=== PATIENT | female | born 1990 | race Caucasian/White ===

== ENCOUNTER → 2018-05-09 | Outpatient (REF) | payer OTHER ==
[~2018-05-09] MED LIST: IBUP80TA PO; MAPA500T2 PO; PREN200C PO
[2018-05-09 17:15] LABS: BASO % 0.4 % (0.0-1.0); HEMATOCRIT 40.8 % (36.0-47.0); HEMOGLOBIN 13.7 g/dl (12.0-15.5); LYMPH # 1.7 10^3/uL (1.5-6.5); LYMPH % 15.8 % (24.0-44.0); MEAN CORPUSCULAR HEMOGLOBIN 31.2 pg (27.0-33.0); MEAN CORPUSCULAR HGB CONC 33.6 g/dl (32.0-36.5); MEAN CORPUSCULAR VOLUME 92.9 fl (80.0-96.0); MONO # 0.5 10^3/uL (0.0-0.8); MONO % 4.6 % (0.0-5.0); NEUTROPHILS # 8.3 10^3/uL (1.8-7.7); PLATELET COUNT, AUTOMATED 302 10^3/uL (150-450); RED BLOOD COUNT 4.39 10^6/uL (4.00-5.40); WHITE BLOOD COUNT 10.5 10^3/uL (4.0-10.0)
[2018-05-09 17:16] LABS: ALBUMIN 4.6 GM/DL (3.2-5.2); ALT/SGPT 19 U/L (12-78); BILIRUBIN,TOTAL 0.4 MG/DL (0.2-1.0); BLOOD UREA NITROGEN 10 MG/DL (7-18); CALCIUM LEVEL 9.4 MG/DL (8.5-10.1); CARBON DIOXIDE LEVEL 26 MEQ/L (21-32); CHLORIDE LEVEL 104 MEQ/L (98-107); CREATININE FOR GFR 0.81 MG/DL (0.55-1.30); GLOMERULAR FILTRATION RATE > 60.0 (>60); GLUCOSE, FASTING 102 MG/DL (70-100); SODIUM LEVEL 138 MEQ/L (136-145)
[2018-05-09 17:27] LABS: HEMOGLOBIN A1c 5.1 %
== END ==
LOC: M SFHCPLAZ 15:35
PROVIDERS: ATTEND Family Medicine
DX: Z51.81 Encounter for therapeutic drug level monitoring (principal); Z79.899 Other long term (current) drug therapy

== ENCOUNTER → 2018-06-20 | Outpatient (REF) | payer OTHER ==
[2018-06-24 14:21] LABS: HPV HYBRID CAPTURE II Negative (Negative)
== END ==
LOC: M SFHCPLAZ 13:09
PROVIDERS: ATTEND Family Medicine
DX: Z12.4 Encounter for screening for malignant neoplasm of cervix (principal); R87.610 Atypical squamous cells of undetermined significance on cytologic smear of cervix (ASC-US)

== ENCOUNTER → 2018-08-16 | Outpatient (REF) | payer OTHER | LOC: M LAB REF 17:42 | PROVIDERS: ATTEND Obstetrics & Gynecology | DX: R87.610 Atypical squamous cells of undetermined significance on cytologic smear of cervix (ASC-US) (principal) ==

== ENCOUNTER 2018-10-07 12:09 | Day surgery (SDC) | payer OTHER ==
[~2018-10-07] VITALS: Ht 160 cm; Wt 57.7 kg
[~2018-10-07 12:09] MED LIST changes: +LATU80TA; +LIDOCAINE 1% MDV 20ML VIAL SQ PRN; +LR 1,000 ML IV ONE
[2018-10-07 12:44] LABS: HEMATOCRIT 39.6 % (36.0-47.0); MEAN CORPUSCULAR HGB CONC 32.8 g/dl (32.0-36.5); MEAN CORPUSCULAR VOLUME 94.3 fl (80.0-96.0); PLATELET COUNT, AUTOMATED 298 10^3/uL (150-450); WHITE BLOOD COUNT 7.2 10^3/uL (4.0-10.0)
[2018-10-07] MEDS ORDERED: BUPIVACAINE HCL 0.25% 30 ML VIAL As Ordered ONE (13:37)
[2018-10-07] MEDS ORDERED: KETOROLAC 60 MG/2 ML VIAL (J1885) As Ordered ONE (13:56)
[2018-10-07] MEDS ORDERED: MIDAZOLAM INJ 2 MG/2 ML VIAL (J2250) As Ordered ONE (13:56)
[2018-10-07] MEDS ORDERED: PROPOFOL 200 MG/20 ML VIAL As Ordered ONE (13:56)
[2018-10-07] MEDS ORDERED: ONDANSETRON 4MG/2ML VIAL (J2405) As Ordered ONE (13:56)
[2018-10-07] MEDS ORDERED: KETAMINE HCL 200 MG/20 ML VIAL As Ordered ONE (13:56)
[2018-10-07] MEDS ORDERED: fentaNYL 250 MCG/5 ML INJECTION (J3010) As Ordered ONE (13:56)
[2018-10-07] MEDS ORDERED: LIDOCAINE 2% INJ 100 MG/5 ML SDV (FOR ANES.) As Ordered ONE (13:56)
[2018-10-07] MEDS ORDERED: GLYCOPYRROLATE INJ 0.2 MG/ML 2 ML VIAL As Ordered ONE (13:58)
[2018-10-07] MEDS ORDERED: ePHEDrine SULFATE 25 MG/5 ML(5MG/ML) SYRINGE As Ordered ONE (14:13)
[2018-10-07 14:30] VITALS: BP 108/59
--- NOTE | 2018-10-09 10:30 | RO ---
DATE OF OPERATION: 10/07/2018 PREOPERATIVE DIAGNOSIS: Vaginal wall inclusion cyst. POSTOPERATIVE DIAGNOSIS: Vaginal wall inclusion cyst. PROCEDURE PERFORMED: Excision of vaginal wall inclusion cyst. SURGEON: Keyona Morales MD STUDIO PRODUCER: Cindy Russell, PGY-3 ANESTHESIA: IV sedation with local Marcaine. ESTIMATED BLOOD LOSS: 10 mL. INTRAVENOUS FLUIDS: 600 mL of Lactated Ringer's solution. URINE OUTPUT: Was not obtained. SPECIMEN: Vaginal cyst wall and vaginal mucosa. OPERATIVE FINDINGS: Approximately 3 cm anterior vaginal wall inclusion cyst. DESCRIPTION OF OPERATION: Informed consent was obtained and written consent reviewed, the patient brought to the operating room where she was placed on IV sedation. She is then placed in lithotomy position, and was prepped and draped in a normal sterile fashion. A time out operating room was then performed identifying the patient, procedure be performed as well as drug allergies. A speculum was then placed revealing the inclusion cyst. This area was placed on tension. Incision was made along the wall. The vaginal mucosa was then dissected off the cyst wall. The cyst wall was then removed. The vaginal mucosa was then trimmed and was sewed using #3-0 Vicryl. Hemostasis noted. The patient was then taken out of lithotomy position and was taken to recovery in stable condition. Counts were correct.
== END 2018-10-07 15:15 | disposition home or self-care (01) ==
LOC: M SDC 12:09
PROVIDERS: ATTEND Obstetrics & Gynecology
DX: N90.7 Vulvar cyst (principal); F31.9 Bipolar disorder, unspecified; F17.210 Nicotine dependence, cigarettes, uncomplicated; Z79.899 Other long term (current) drug therapy
CPT/HCPCS: 36415; 57135; 85027; 86850; 86900; 86901; 88302; 88305; J1885; J2250; J2405; J3010

== ENCOUNTER → 2019-01-29 | Outpatient (CLI) | payer OTHER ==
[~2019-01-29] MED LIST changes: +ALBU8.5H INH; +DOXY100C37 PO; -LIDOCAINE 1% MDV 20ML VIAL SQ PRN; -LR 1,000 ML IV ONE; +PRED20TA PO; +VENL37TA PO
--- NOTE | 2019-01-29 13:56 | REP ---
REASON: Cough. COMPARISON: Frontal view obtained as part of an abdominal series 10/13/2013. There is a new patchy opacity in the left upper lobe. The pleural angles are sharp and the heart is not enlarged. The osseous structures are within normal limits. IMPRESSION: Left upper lobe pneumonia. Electronically Signed by Kristian Antoine DO 01/29/2019 02:29 P
== END ==
LOC: M WUC 12:18
PROVIDERS: ATTEND Physician Assistant
DX: R05 Cough (principal)

== ENCOUNTER 2019-01-31 10:12 | Emergency (ER) | payer OTHER ==
[~2019-01-31] VITALS: Ht 157.5 cm; Wt 57.9 kg
[~2019-01-31 10:12] MED LIST changes: -ALBU8.5H INH; -DOXY100C37 PO; -PRED20TA PO; -VENL37TA PO
[2019-01-31] MEDS ORDERED: DOXY100C37 PO (10:21)
[2019-01-31] MEDS ORDERED: VENL37TA PO (10:21)
[2019-01-31] MEDS ORDERED: ALBU8.5H INH (10:21)
[2019-01-31] MEDS ORDERED: methylPREDNISolone INJ 125 MG/2 ML VIAL (J2930) IV ONE (11:15)
[2019-01-31] MEDS ORDERED: ONDANSETRON 4MG/2ML VIAL (J2405) IV ONE (11:15)
[2019-01-31] MEDS ORDERED: NS 1,000 ML IV ONE (11:15)
[2019-01-31] MEDS: IPRATROPIUM 0.5MG/ALBUTEROL 2.5MG INH SOL UD 3ML (DUONEB)(J7620) NEB PRN ×2 (11:32→14:17)
[2019-01-31 11:47] LABS: HEMATOCRIT 44.8 % (36.0-47.0); HEMOGLOBIN 14.5 g/dl (12.0-15.5); MEAN CORPUSCULAR HEMOGLOBIN 30.6 pg (27.0-33.0); MEAN CORPUSCULAR HGB CONC 32.4 g/dl (32.0-36.5); MEAN CORPUSCULAR VOLUME 94.5 fl (80.0-96.0); PLATELET COUNT, AUTOMATED 520 10^3/uL (150-450); RED BLOOD COUNT 4.74 10^6/uL (4.00-5.40); WHITE BLOOD COUNT 5.9 10^3/uL (4.0-10.0)
[2019-01-31 12:49] LABS: INFLUENZA A AMPLIFICATION NEGATIVE (NEGATIVE); INFLUENZA B AMPLIFICATION NEGATIVE (NEGATIVE)
[2019-01-31] MEDS ORDERED: DOXYCYCLINE HYCLATE 100 MG in D5W MINI-BAG PLUS 100 ML IV ONE (13:15)
[2019-01-31] MEDS ORDERED: PRED20TA PO (14:00)
[2019-01-31 14:40] VITALS: BP 117/58
--- NOTE | 2019-01-31 19:01 | REP ---
Chest x-ray: Two views. History: Abnormal breath sounds. Comparison chest x-ray: January 29, 2019. Findings: There is still an infiltrate in the left upper lobe consistent with pneumonia. It is essentially unchanged. Remaining lung jackson are clear. Pleural angles are sharp. No bony abnormalities seen. Heart size is normal. Impression: Left upper lobe pneumonia again seen essentially unchanged from the study done 2 days prior. Electronically Signed by Hal Higuera MD 01/31/2019 06:52 P
== END 2019-01-31 14:42 | disposition home or self-care (01) ==
LOC: M ED 10:12
DX: J18.1 Lobar pneumonia, unspecified organism (principal); F31.89 Other bipolar disorder; F41.9 Anxiety disorder, unspecified; Z87.01 Personal history of pneumonia (recurrent); F17.200 Nicotine dependence, unspecified, uncomplicated; Z79.899 Other long term (current) drug therapy
CPT/HCPCS: 36415; 71046; 80047; 83605; 84702; 85027; 87040; 87502; 94640; 96361; 96365; 96375; 99284; J2405; J2930

== ENCOUNTER → 2020-01-24 | Outpatient (CLI) | payer OTHER ==
[~2020-01-24] MED LIST changes: +ALBU8.5H INH; +DOXY100C37 PO; +PRED20TA PO; +VENL37TA PO
[2020-01-24 13:58] LABS: BASO % 0.2 % (0.0-1.0); EOS # 0.1 10^3/uL (0.0-0.5); EOS % 0.5 % (0.0-3.0); HEMATOCRIT 41.1 % (36.0-47.0); HEMOGLOBIN 13.6 g/dl (12.0-15.5); LYMPH # 1.4 10^3/uL (1.5-5.0); LYMPH % 14.6 % (24.0-44.0); MEAN CORPUSCULAR HEMOGLOBIN 30.6 pg (27.0-33.0); MEAN CORPUSCULAR HGB CONC 33.1 g/dl (32.0-36.5); MEAN CORPUSCULAR VOLUME 92.6 fl (80.0-96.0); MONO # 0.7 10^3/uL (0.0-0.8); MONO % 7.4 % (0.0-5.0); NEUTROPHILS # 7.3 10^3/uL (1.5-8.5); NEUTROPHILS % 76.9 % (36.0-66.0); PLATELET COUNT, AUTOMATED 322 10^3/uL (150-450); RED BLOOD COUNT 4.44 10^6/uL (4.00-5.40); WHITE BLOOD COUNT 9.5 10^3/uL (4.0-10.0)
[2020-01-24 14:20] LABS: ERYTHROCYTE SEDIMENTATION RATE 36 mm/hr (0-20)
[2020-01-24 14:34] LABS: ALBUMIN 3.9 GM/DL (3.2-5.2); ALT/SGPT 29 U/L (12-78); BILIRUBIN,TOTAL 0.7 MG/DL (0.2-1.0); BLOOD UREA NITROGEN 8 MG/DL (7-18); CALCIUM LEVEL 9.3 MG/DL (8.5-10.1); CARBON DIOXIDE LEVEL 22 MEQ/L (21-32); CHLORIDE LEVEL 103 MEQ/L (98-107); CREATININE FOR GFR 0.67 MG/DL (0.55-1.30); GLOMERULAR FILTRATION RATE > 60.0 (>60); GLUCOSE, FASTING 81 MG/DL (70-100); MAGNESIUM LEVEL 2.2 MG/DL (1.8-2.4); NT-PRO BNP 36 PG/ML (<125); POTASSIUM SERUM 3.5 MEQ/L (3.5-5.1); SODIUM LEVEL 136 MEQ/L (136-145); TOTAL PROTEIN 7.6 GM/DL (6.4-8.2)
== END ==
LOC: M WUC 11:15
PROVIDERS: ATTEND Nurse Practitioner Family
DX: R22.43 Localized swelling, mass and lump, lower limb, bilateral (principal)

== ENCOUNTER 2020-02-20 11:14 | Emergency (ER) | payer OTHER ==
[~2020-02-20] VITALS: Ht 157.5 cm; Wt 68.4 kg
[2020-02-20 12:17] LABS: BASO % 0.3 % (0.0-1.0); EOS # 0.1 10^3/uL (0.0-0.5); EOS % 1.9 % (0.0-3.0); HEMATOCRIT 44.6 % (36.0-47.0); HEMOGLOBIN 14.2 g/dl (12.0-15.5); LYMPH # 1.3 10^3/uL (1.5-5.0); LYMPH % 17.4 % (24.0-44.0); MEAN CORPUSCULAR HEMOGLOBIN 29.5 pg (27.0-33.0); MEAN CORPUSCULAR HGB CONC 31.8 g/dl (32.0-36.5); MEAN CORPUSCULAR VOLUME 92.5 fl (80.0-96.0); MONO # 0.6 10^3/uL (0.0-0.8); MONO % 7.4 % (0.0-5.0); NEUTROPHILS # 5.5 10^3/uL (1.5-8.5); NEUTROPHILS % 72.7 % (36.0-66.0); PLATELET COUNT, AUTOMATED 339 10^3/uL (150-450); RED BLOOD COUNT 4.82 10^6/uL (4.00-5.40); WHITE BLOOD COUNT 7.6 10^3/uL (4.0-10.0)
[2020-02-20 12:29] LABS: INR 0.88; PROTHROMBIN TIME 12.1 SECONDS (12.5-14.3)
[2020-02-20 12:38] LABS: ERYTHROCYTE SEDIMENTATION RATE 11 mm/hr (0-20)
[2020-02-20 12:43] LABS: ALBUMIN 4.6 GM/DL (3.2-5.2); ALT/SGPT 22 U/L (12-78); BILIRUBIN,DIRECT 0.2 MG/DL (0.0-0.2); BLOOD UREA NITROGEN 15 MG/DL (7-18); C REACTIVE PROTEIN QUANTITATIV 1.53 MG/DL (0.00-0.30); CALCIUM LEVEL 10.3 MG/DL (8.5-10.1); CARBON DIOXIDE LEVEL 28 MEQ/L (21-32); CHLORIDE LEVEL 103 MEQ/L (98-107); CREATININE FOR GFR 0.74 MG/DL (0.55-1.30); GLOMERULAR FILTRATION RATE > 60.0 (>60); GLUCOSE, FASTING 84 MG/DL (70-100); POTASSIUM SERUM 4.1 MEQ/L (3.5-5.1); SODIUM LEVEL 137 MEQ/L (136-145); TOTAL PROTEIN 8.3 GM/DL (6.4-8.2)
--- NOTE | 2020-02-20 13:11 | REP ---
INDICATION: redness, swelling R/O DVT. COMPARISON: None TECHNIQUE: Multiple ultrasonographic images of the deep venous structures of the bilateral thighs were obtained from the level of the common femoral vein to the popliteal vein in the longitudinal and transverse scan planes along with Doppler interrogation and color flow Doppler imaging. FINDINGS: There is no abnormal echogenic material seen within any of the visualized deep venous structures that would suggest acute thrombosis. Coaptation is unremarkable throughout. Doppler interrogation shows an expected response to respiratory variability and augmentation. The color flow Doppler images show what appears to be a normal vascular pattern throughout. IMPRESSION: There is no ultrasonographic evidence of deep venous thrombosis involving any of the visualized deep venous structures of the bilateral thigh as described above. Accredited by the [employer] in Vascular Peripheral Ultrasound. <Electronically signed by Huseyin Locke > 02/20/20 [id number]
[2020-02-20 13:35] VITALS: BP 124/57
== END 2020-02-20 14:07 | disposition home or self-care (01) ==
LOC: M ED 11:14
DX: M79.89 Other specified soft tissue disorders (principal); F17.210 Nicotine dependence, cigarettes, uncomplicated

== ENCOUNTER 2020-06-20 12:30 | Emergency (ER) | payer OTHER ==
[~2020-06-20] VITALS: Ht 157.5 cm; Wt 67.5 kg
[2020-06-20 12:30] VITALS: BP 145/79
[~2020-06-20 12:30] MED LIST changes: -MUPI2OI TOP; -SILV1CRE60 TOP; -VALA1TAB5 PO
[2020-06-20] MEDS ORDERED: SILV1CRE60 TOP (12:53)
[2020-06-20] MEDS ORDERED: MUPI2OI TOP (14:14)
[2020-06-20] MEDS ORDERED: VALA1TAB5 PO (14:14)
== END 2020-06-20 14:23 | disposition home or self-care (01) ==
LOC: M ED 12:30
DX: R21 Rash and other nonspecific skin eruption (principal)

== ENCOUNTER → 2020-06-20 | Outpatient (CLI) | payer OTHER ==
[~2020-06-20] MED LIST changes: +MUPI2OI TOP; +SILV1CRE60 TOP; +VALA1TAB5 PO
--- NOTE | 2020-06-20 12:38 | REP ---
INDICATION: ROSALIE LEG SWELLING ? PVD COMPARISON: None. TECHNIQUE: Real time cash scale and Duplex Doppler evaluation of the bilateral lower extremity arterial vasculature using linear high frequency transducer. FINDINGS: Cash scale and duplex doppler images demonstrate very minimal scattered plaquing bilaterally with diffuse triphasic waveforms, monophasic waveforms are seen in the left profunda and distal posterior tibial artery. There is no duplex Doppler sonographic evaluation of hemodynamically significant stenosis bilaterally. No arterial occlusion is seen. GERALD right 1.13 and left 0.92. Peak systolic velocities (cm/sec) Common femoral artery: Right 118; Left 128 Profunda femoris: Right 108; Left 110 SFA (proximal): Right 115; Left 129 SFA (mid): Right 143; Left 126 SFA (distal): Right 130; Left 101 Popliteal artery: Right 106; Left 78 TAHIR (prox.): Right 67; Left 58 Tibioperoneal trunk: Right 75; Left 92 HIGH WIRE ARTIST (prox.): Right 72; Left 81 HIGH WIRE ARTIST (distal): Right 53; Left 69 TAHIR (distal): Right 63; Left 53 IMPRESSION: Minimal atheromatous changes no focal occlusion or stenosis. <Electronically signed by Juaquin Cash > 06/20/20 [id number]
== END ==
LOC: M RAD 11:14
PROVIDERS: ATTEND Nurse Practitioner Family
DX: M79.89 Other specified soft tissue disorders (principal)

== ENCOUNTER 2020-08-27 15:00 | Emergency (ER) | payer OTHER ==
[~2020-08-27] VITALS: Ht 157.5 cm; Wt 65.9 kg
[~2020-08-27 15:00] MED LIST changes: +MUPI2OI TOP; +SILV1CRE60 TOP; +VALA1TAB5 PO
[2020-08-27] MEDS ORDERED: ACE65ERTAB PO (15:10)
[2020-08-27] MEDS ORDERED: ACETAMINOPHEN 500 MG TAB PO ONE (18:35)
--- NOTE | 2020-08-27 19:00 | REP ---
INDICATION: cough. COMPARISON: 01/31/2019 the latest prior TECHNIQUE: Portable FINDINGS: The technique utilized in obtaining the radiograph has magnified the cardiac silhouette and accentuated the interstitial markings. The superior mediastinal structures are midline. The cardiac silhouette is unremarkable in size, shape, and position. The diaphragmatic surfaces of the lungs are regular, and the costophrenic angles are clear. The pulmonary jackson are clear. The imaged osseous structures are intact. IMPRESSION: There is no acute cardiopulmonary disease. <Electronically signed by Kristian Antoine > 08/27/20 [id number]
[2020-08-27] MEDS ORDERED: PROAAER10 INH (19:19)
[2020-08-27] MEDS ORDERED: TESS100C PO (19:19)
[2020-08-27] MEDS ORDERED: BENZONATATE 100 MG CAP PO ONE (19:20)
[2020-08-27 19:37] VITALS: O2SAT 99
[2020-08-27 19:46] VITALS: BP 128/68
== END 2020-08-27 19:55 | disposition home or self-care (01) ==
LOC: M ED 15:00
DX: Z20.822 Contact with and (suspected) exposure to COVID-19 (principal); Z11.52 Encounter for screening for COVID-19; J06.9 Acute upper respiratory infection, unspecified; J45.901 Unspecified asthma with (acute) exacerbation; R05 Cough; R68.83 Chills (without fever); M79.10 Myalgia, unspecified site; R09.82 Postnasal drip; F41.9 Anxiety disorder, unspecified; F32.9 Major depressive disorder, single episode, unspecified; F17.200 Nicotine dependence, unspecified, uncomplicated
CPT/HCPCS: 71045; 87804; 99284; U0003

== ENCOUNTER → 2020-12-16 | Outpatient (CLI) | payer MEDICAID ==
[~2020-12-16] MED LIST changes: +ACE65ERTAB PO; -DOXY100C37 PO; +DOXY1CAP62 PO; +PROAAER10 INH; +TESS100C PO
== END ==
LOC: M OUTALCOH 07:44
PROVIDERS: ATTEND Psychiatry & Neurology Psychiatry
DX: F16.20 Hallucinogen dependence, uncomplicated (principal)

== ENCOUNTER 2021-01-15 13:58 | Outpatient (RCR) | payer MEDICAID | END 2021-01-16 | LOC: M OUTALCOH 13:58 | PROVIDERS: ATTEND Psychiatry & Neurology Psychiatry | DX: F16.10 Hallucinogen abuse, uncomplicated (principal); F17.200 Nicotine dependence, unspecified, uncomplicated ==

== ENCOUNTER 2021-02-11 10:00 | Outpatient (RCR) | payer MEDICAID ==
[~2021-02-11 10:00] MED LIST changes: +DOXY-443 PO; -DOXY1CAP62 PO
== END 2021-02-16 ==
LOC: M OUTALCOH 10:00
PROVIDERS: ATTEND Psychiatry & Neurology Psychiatry
DX: F16.10 Hallucinogen abuse, uncomplicated (principal); F17.200 Nicotine dependence, unspecified, uncomplicated

== ENCOUNTER 2021-03-04 10:00 | Outpatient (RCR) | payer MEDICAID ==
[~2021-03-04 10:00] MED LIST changes: -LATU80TA; +LATU80TA2
== END 2021-03-18 ==
LOC: M OUTALCOH 10:00
PROVIDERS: ATTEND Psychiatry & Neurology Psychiatry
DX: F16.10 Hallucinogen abuse, uncomplicated (principal); F17.200 Nicotine dependence, unspecified, uncomplicated

== ENCOUNTER 2021-04-10 11:17 | Outpatient (RCR) | payer MEDICAID ==
[~2021-04-10 11:17] MED LIST changes: +LATU80TA; -LATU80TA2
== END 2021-04-18 ==
LOC: M OUTALCOH 11:17
PROVIDERS: ATTEND Psychiatry & Neurology Psychiatry
DX: F16.10 Hallucinogen abuse, uncomplicated (principal); F17.200 Nicotine dependence, unspecified, uncomplicated

== ENCOUNTER 2021-05-15 11:09 | Outpatient (RCR) | payer MEDICAID ==
[~2021-05-15 11:09] MED LIST changes: -LATU80TA; +LATU80TA2
== END 2021-05-19 ==
LOC: M OUTALCOH 11:09
PROVIDERS: ATTEND Psychiatry & Neurology Psychiatry
DX: F16.10 Hallucinogen abuse, uncomplicated (principal); F17.200 Nicotine dependence, unspecified, uncomplicated

== ENCOUNTER → 2022-03-19 | Outpatient (REF) | LOC: M LAB 15:44 | PROVIDERS: ATTEND Nurse Practitioner Adult Health | DX: Z00.00 Encounter for general adult medical examination without abnormal findings (principal) ==